=== PATIENT | female | born 1955 | race Caucasian/White ===

== ENCOUNTER 2021-01-23 | Inpatient (IN) | payer MEDICARE, OTHER | END 2021-01-26 17:10 | disposition home or self-care (01) | DRG 330 | PROVIDERS: ADMIT Surgery Plastic and Reconstructive Surgery | PROC: 30233N1 Transfusion of Nonautologous Red Blood Cells into Peripheral Vein, Percutaneous Approach (ICD-10-PCS; 2021-01-24) | PROC: 8E0W4CZ Robotic Assisted Procedure of Trunk Region, Percutaneous Endoscopic Approach (ICD-10-PCS; principal; 2021-01-25) | PROC: 0DTF4ZZ Resection of Right Large Intestine, Percutaneous Endoscopic Approach (ICD-10-PCS; principal; 2021-01-25) | DX: C18.4 Malignant neoplasm of transverse colon (principal); N17.9 Acute kidney failure, unspecified; K92.2 Gastrointestinal hemorrhage, unspecified; Z68.41 Body mass index [BMI] 40.0-44.9, adult; D63.1 Anemia in chronic kidney disease; R16.0 Hepatomegaly, not elsewhere classified; I95.9 Hypotension, unspecified; I13.10 Hypertensive heart and chronic kidney disease without heart failure, with stage 1 through stage 4 chronic kidney disease, or unspecified chronic kidney disease; K76.0 Fatty (change of) liver, not elsewhere classified; N18.30 Chronic kidney disease, stage 3 unspecified; E66.01 Morbid (severe) obesity due to excess calories; I73.9 Peripheral vascular disease, unspecified; J44.9 Chronic obstructive pulmonary disease, unspecified; Z20.822 Contact with and (suspected) exposure to COVID-19; D50.0 Iron deficiency anemia secondary to blood loss (chronic); F32.9 Major depressive disorder, single episode, unspecified; K82.8 Other specified diseases of gallbladder; G47.33 Obstructive sleep apnea (adult) (pediatric); E78.5 Hyperlipidemia, unspecified; E03.9 Hypothyroidism, unspecified; K21.9 Gastro-esophageal reflux disease without esophagitis; G25.81 Restless legs syndrome; N20.0 Calculus of kidney; R00.1 Bradycardia, unspecified; M19.90 Unspecified osteoarthritis, unspecified site; Z79.82 Long term (current) use of aspirin; Z79.51 Long term (current) use of inhaled steroids; Z79.890 Hormone replacement therapy; Z79.899 Other long term (current) drug therapy; Z87.891 Personal history of nicotine dependence; Z95.0 Presence of cardiac pacemaker; Z90.89 Acquired absence of other organs; Z98.891 History of uterine scar from previous surgery; Z98.51 Tubal ligation status; Z90.710 Acquired absence of both cervix and uterus; Z87.42 Personal history of other diseases of the female genital tract; Z87.2 Personal history of diseases of the skin and subcutaneous tissue; Z90.49 Acquired absence of other specified parts of digestive tract; Z87.19 Personal history of other diseases of the digestive system; Z87.39 Personal history of other diseases of the musculoskeletal system and connective tissue; Z98.890 Other specified postprocedural states; Z88.1 Allergy status to other antibiotic agents; Z91.030 Bee allergy status; Z88.0 Allergy status to penicillin; Z88.8 Allergy status to other drugs, medicaments and biological substances; Z91.048 Other nonmedicinal substance allergy status; Z82.49 Family history of ischemic heart disease and other diseases of the circulatory system; Z83.49 Family history of other endocrine, nutritional and metabolic diseases | CPT/HCPCS: 36415; 64999; 71046; 74176; 80048; 80053; 81001; 82728; 83540; 83550; 85025; 85027; 85610; 85730; 86850; 86900; 86901; 86920; 87635; 88309; 93005; 93306; 94640; 99284 ==

== ENCOUNTER 2021-01-27 16:41 | Emergency (ER) | payer MEDICARE, OTHER ==
[2021-01-27 16:46] VITALS: RESP 16; TEMP 98.1
--- NOTE | 2021-01-27 17:50 | ED ---
General Adult HPI - General Chief complaint: Recheck/Abnormal Lab/Rx Stated complaint: Leg & feet swollen Source: patient, family, RN notes reviewed, old records reviewed Mode of arrival: ambulatory Limitations: no limitations - History of Present Illness Initial comments: 65-year-old pleasant white female, presents to the emergency room alert and oriented 4, with complaints of bilateral lower leg swelling. Patient was discharged yesterday after a right hemicolectomy for adenocarcinoma of the colon by Dr. Foreman. Patient states that she has no pain however she noticed that her legs were swollen. She denies any chest pain or shortness of breath. She has a history of hypertension, osteoarthritis, colon cancer and anemia. She has surgical history of an appendectomy, hysterectomy, stent to the right leg from venous insufficiency. Patient states she does not take any blood thinners other than a baby aspirin. She is passing gas and is denying any bloody stools. She no nausea vomiting or diarrhea. -: days(s) (1) Location: left, right, lower extremity Radiation: non-radiation Severity scale (1-10): 0 - Related Data Home Medications Medication Instructions Recorded Confirmed Aspirin 162 mg PO DAILY 12/15/14 01/27/21 DULoxetine HCL [Cymbalta] 60 mg PO DAILY@1200 12/15/14 01/27/21 Multivitamins, Thera [Multivitamin 1 tab PO DAILY 12/15/14 01/27/21 (formulary)] [place]-3 Fatty Acids/Fish Oil [Fish 1 cap PO DAILY 12/15/14 01/27/21 Oil 1,000 mg Softgel] Orphenadrine [Norflex] 100 mg PO DAILY PRN 12/15/14 01/27/21 Ubidecarenone [Co Q-10] 200 mg PO DAILY 12/15/14 01/27/21 Albuterol Sulfate [Proair Hfa] 2 puff INHALATION RT-QID PRN 01/23/21 01/27/21 Biotin 10,000 mcg PO DAILY 01/23/21 01/27/21 Collagen 2,500 mg PO DAILY 01/23/21 01/27/21 Diltiazem HCl [Cartia Xt] 120 mg PO DAILY 01/23/21 01/27/21 EPINEPHrine (Auto Inject) [Epipen] 0.3 mg IM ONCE PRN 01/23/21 01/27/21 Ezetimibe [Zetia] 10 mg PO DAILY 01/23/21 01/27/21 Fenofibrate 160 mg PO DAILY 01/23/21 01/27/21 Fluticasone/Salmeterol [Advair 1 puff INHALATION RT-BID 01/23/21 01/27/21 250-50 Diskus] L.acidoph,Paracasei, B.lactis 1 cap PO DAILY 01/23/21 01/27/21 [Probiotic] Levocetirizine Dihydrochloride 5 mg PO DAILY 01/23/21 01/27/21 [Xyzal] Levothyroxine Sodium [Synthroid] 88 mcg PO DAILY 01/23/21 01/27/21 Montelukast Sodium [Singulair] 10 mg PO HS 01/23/21 01/27/21 Ondansetron HCl [Zofran] 4 mg PO BID PRN 01/23/21 01/27/21 Sucralfate [Carafate] 1 gm PO TID PRN 01/23/21 01/27/21 Tiotropium [place] [Spiriva 2 puff INHALATION RT-DAILY 01/23/21 01/27/21 Respimat] Previous Rx's Medication Instructions Recorded Acetaminophen Tab [Tylenol Tab] 1,000 mg PO Q6HR PRN #30 tablet 01/26/21 Simethicone [Gas-X] 125 mg PO AC-TID PRN #20 capsule 01/26/21 Allergies Allergy/AdvReac Type Severity Reaction Status Date / Time adhesive Allergy CANO SKIN Verified 01/27/21 17:53 ciprofloxacin [From Cipro] Allergy Rash/Hives Verified 01/27/21 17:53 ciprofloxacin HCl Allergy Rash/Hives Verified 01/27/21 17:53 [From Cipro] venom-honey bee Allergy Swelling Verified 01/27/21 17:53 [bee venom (honey bee)] cephalexin monohydrate AdvReac Nausea. Verified 01/27/21 17:53 [From Keflex] YEAST INFECTION Corticosteroids AdvReac FLUSHING Verified 01/27/21 17:53 (Glucocorticoids) erythromycin base AdvReac Nausea Verified 01/27/21 17:53 Penicillins AdvReac Nausea Verified 01/27/21 17:53 Review of Systems ROS Statement: Those systems with pertinent positive or pertinent negative responses have been documented in the HPI. ROS Other: All systems not noted in ROS Statement are negative. Past Medical History Past Medical History: Cancer, Hyperlipidemia, Hypertension, Osteoarthritis (OA), Sleep Apnea/CPAP/BIPAP, Thyroid Disorder Additional Past Medical History / Comment(s): colon cancer. BRADYCARDIA PRIOR TO PACEMAKER. DEGENERATIVE DISC DISEASE. USES CPAP. History of Any Multi-Drug Resistant Organisms: None Reported Past Surgical History: Appendectomy, Breast Surgery, Section, Hysterectomy, Orthopedic Surgery, Pacemaker, Tonsillectomy, Tubal Ligation Additional Past Surgical History / Comment(s): RIGHT BREAST BX (NEGATIVE). PACER-[employer]. RIGHT SHOULDER OCTOBER 2014. LEFT BUNION/TOE. Complete left knee Past Anesthesia/Blood Transfusion Reactions: Postoperative Nausea & Vomiting (PONV) Type of Cardiac Device: Permanent Pacemaker Device Placement Date:: 2013 Past Psychological History: No Psychological Hx Reported Smoking Status: Former smoker Past Alcohol Use History: None Reported Past Drug Use History: None Reported - Past Family History Father Family Medical History: Coronary Artery Disease (CAD) Mother Family Medical History: Cancer General Exam Limitations: no limitations General appearance: alert, in no apparent distress Head exam: Present: atraumatic, normocephalic, normal inspection Eye exam: Present: normal appearance, PERRL, EOMI. Absent: scleral icterus, conjunctival injection, periorbital swelling ENT exam: Present: normal exam, normal oropharynx, mucous membranes moist Neck exam: Present: normal inspection, full ROM. Absent: tenderness, meningismus, lymphadenopathy Respiratory exam: Present: normal lung sounds bilaterally. Absent: respiratory distress, wheezes, rales, rhonchi, stridor, chest wall tenderness, accessory muscle use, decreased breath sounds, prolonged expiratory Cardiovascular Exam: Present: regular rate, normal rhythm, normal heart sounds. Absent: systolic murmur, diastolic murmur, rubs, gallop, clicks GI/Abdominal exam: Present: soft, normal bowel sounds, other (Surgical incisions are intact with no signs of erythema or drainage). Absent: distended, tenderness, guarding, rebound, rigid Extremities exam: Present: full ROM, normal capillary refill, pedal edema. Ab sent: tenderness, joint swelling, calf tenderness Back exam: Present: normal inspection, full ROM. Absent: tenderness, CVA tenderness (R), CVA tenderness (L), muscle spasm, paraspinal tenderness, vertebral tenderness Neurological exam: Present: alert, oriented X3, CN II-XII intact Psychiatric exam: Present: normal affect, normal mood Skin exam: Present: warm, dry, intact, normal color. Absent: rash, cyanosis, diaphoretic, erythema, petechiae, pallor, mottled Course Vital Signs 01/27/21 01/27/21 16:43 18:56 Temperature 98.1 F Pulse Rate 86 73 Respiratory 16 16 Rate Blood Pressure 183/68 156/65 O2 Sat by Pulse 98 97 Oximetry Medical Decision Making - Medical Decision Making Patient had a right hemicolectomy and discharged yesterday with Dr. Carcamo. She complains of bilateral lower extremity swelling today with no pain. No calf tenderness, negative Homans sign, no fevers. Patient denies any chest pain or shortness of breath. Distal pedal pulses present. Bilateral lower extremities US reveals no DVTs. Patient has an appointment scheduled with Dr. Carcamo on Friday for follow-up. Patient will be discharged home with diagnosis of lymphedema. Case discussed with Dr. Lopez was agreeable to this plan of care. Disposition Clinical Impression: Lymphedema Disposition: HOME SELF-CARE Condition: Good Instructions (If sedation given, give patient instructions): Lymphedema (ED) Additional Instructions: Return to the emergency room with any leg pain, shortness of breath, chest pain or fevers. Keep your appointment with Dr. Carcamo on Friday. Continue your medications as prescribed. Rest, and elevate lower extremities while at home. Is patient prescribed a controlled substance at d/c from ED?: No Referrals: Nonstaff,Physician [Primary Care Provider] - 1-2 days Leatha Carcamo MD [STAFF PHYSICIAN] - 1-2 days Time of Disposition: 19:05
--- NOTE | 2021-01-27 18:44 | US ---
EXAMINATION TYPE: US venous doppler duplex LE DATE OF EXAM: 01/27/2021 6:35 PM COMPARISON: NONE CLINICAL HISTORY: swelling/ post-op . bilateral leg swelling. No redness. Not on blood thinners. SIDE PERFORMED: Bilateral TECHNIQUE: The lower extremity deep venous system is examined utilizing real time linear array sonog anurag with graded compression, doppler sonography and color-flow sonography. VESSELS IMAGED: Common Femoral Vein Deep Femoral Vein Greater Saphenous Vein * Femoral Vein Popliteal Vein Small Saphenous Vein * Proximal Calf Veins (* superficial vessels) Right Leg: Negative for DVT Left Leg: Negative for DVT IMPRESSION: No sign of deep vein thrombosis in both legs.
[2021-01-27 18:57] VITALS: BP 156/65; PULSE 73
== END 2021-01-27 19:20 | disposition home or self-care (01) ==
LOC: EC 16:41
DX: I89.0 Lymphedema, not elsewhere classified (principal); I10 Essential (primary) hypertension; E78.5 Hyperlipidemia, unspecified; M19.90 Unspecified osteoarthritis, unspecified site; Z79.51 Long term (current) use of inhaled steroids; Z79.82 Long term (current) use of aspirin; Z85.038 Personal history of other malignant neoplasm of large intestine; Z87.891 Personal history of nicotine dependence; Z88.0 Allergy status to penicillin; Z88.1 Allergy status to other antibiotic agents; Z95.0 Presence of cardiac pacemaker; G47.30 Sleep apnea, unspecified
CPT/HCPCS: 93970; 99283